=== PATIENT | male | born 2000 | race Caucasian/White ===

== ENCOUNTER → 2019-07-04 | Outpatient (REF) | payer OTHER | LOC: M SFHCADAM 16:36 | PROVIDERS: ATTEND Physician Assistant | DX: J06.9 Acute upper respiratory infection, unspecified (principal) | CPT/HCPCS: 87081; 87502; U0002 ==

== ENCOUNTER → 2019-12-05 | Outpatient (REF) | payer OTHER ==
[2019-12-09 23:10] LABS: MUMPS VIRUS IgM ANTIBODY <0.80 AU (0.00-0.79)
== END ==
LOC: M LABDRWAD 17:30
PROVIDERS: ATTEND Physician Assistant
DX: J02.9 Acute pharyngitis, unspecified (principal); K11.21 Acute sialoadenitis

== ENCOUNTER → 2020-08-19 | Outpatient (REF) | payer OTHER | LOC: M SFHCADAM 12:16 | PROVIDERS: ATTEND Physician Assistant | DX: R55 Syncope and collapse (principal); F33.2 Major depressive disorder, recurrent severe without psychotic features; F41.0 Panic disorder [episodic paroxysmal anxiety] ==